=== PATIENT | male | born 1960 | race Caucasian/White ===

== ENCOUNTER 2016-11-22 10:08 | Emergency (ER) | payer OTHER ==
[~2016-11-22 10:08] MED LIST: ALBUTEROL SULF8.5 GM IH; ALBUTEROL17 GM INH; FLEXERIL5 MG PO; LISINOPRIL-HCT1 EAC3 PO; LISINOPRIL-HCTZ1 TAB; NO HOME MEDICATION XX; NORCO 5-325 TA1 EACH PO; NORCO 5/325 TAB1 TAB PO; PREDNISONE10 M1 PO; PREDNISONE20 MG PO; ZITHROMAX250 MG PO
[2016-11-22] MEDS ORDERED: DELTASONE20 MG PO (10:28)
[2016-11-22] MEDS ORDERED: BACTRIM DS TAB1 EAC2 PO (10:29)
[2016-11-22 11:31] LABS: BASO % 0.1 % (0-2); EOS % 1.5 % (0-7); EOSINOPHIL ABSOLUTE COUNT 0.2 tho/cmm (0.0-0.7); HCT-HEMATOCRIT 51.2 % (36.0-53.5); HGB-HEMOGLOBIN 18.2 gm/dl (13.5-17.0); IMMATURE GRANULOCYTES PERCENT 0.7 % (0-0.3); LYMPH % 18.5 % (20-45); LYMPH ABSOLUTE COUNT 2.5 tho/cmm (0.8-4.5); MCH (MEAN CORPUSCULAR HGB) 31.7 pg (28.0-32.0); MCHC MEAN CORPUSCULAR HGB CONC 35.5 % (32.0-36.0); MCV (MEAN CELL VOLUME) 89.2 fl (82.0-96.0); MEAN PLATELET VOLUME 9.9 cmc (9.4-12.4); MONO % 5.5 % (0-12); MONOCYTE ABSOLUTE COUNT 0.7 tho/cmm (0.0-1.2); NEUTROPHIL ABSOLUTE COUNT 9.9 tho/cmm (1.6-8.0); NEUTROPHIL-AUTOMATED 9.9 tho/cmm (1.6-8.0); NEUTROPHILS % 73.7 % (40-80); PLATELET COUNT 220 tho/cmm (150-450); RED BLOOD COUNT 5.74 mil/cmm (4.40-5.70); RED CELL DISTRIBUTION WIDTH 12.7 % (12.4-16.4); WHITE BLOOD COUNT 13.5 tho/cmm (4.0-10.0)
[2016-11-22 11:42] LABS: ALB/GLOB RATIO 0.8 (0.8-2.0); ALBUMIN 3.6 g/dl (3.5-5.0); ALKALINE PHOSPHATASE 101 U/L (33-138); ALT/SGPT 24 U/L (12-78); BLOOD UREA NITROGEN 25 mg/dl (6-24); C-REACTIVE PROTEIN 1.7 mg/dl (0-0.9); CALCIUM 8.9 mg/dl (8.5-10.5); CARBON DIOXIDE-VENOUS 29 mmol/L (22-32); CHLORIDE 104 mmol/l (96-110); CREATININE 1.26 mg/dl (0.60-1.30); GLUCOSE 145 mg/dL (70-110); SODIUM 138 mmol/L (135-145); eGFR VALUE FOR BLACK 73 mL/Min
[2016-11-22 11:45] LABS: ANION GAP 10 mmol/L (0-20)
[2016-11-22 11:46] LABS: AST/SGOT 17 U/L (10-40); POTASSIUM 4.5 mmol/L (3.7-5.1)
== END 2016-11-22 13:20 ==
LOC: EDMED 10:08
PROVIDERS: Nurse Practitioner Family
DX: M70.41 Prepatellar bursitis, right knee (principal); I10 Essential (primary) hypertension; Z88.6 Allergy status to analgesic agent; Z79.899 Other long term (current) drug therapy